=== PATIENT | female | born 1990 | race Caucasian/White ===

== ENCOUNTER → 2017-09-03 | Outpatient (CLI) | payer BC, OTHER ==
[2017-09-03 10:06] LABS: HCT 35.9 % (34.0-46.0); HGB 12.4 gm/dL (11.4-16.0); MCH 29.6 pg (25.0-35.0); MCHC 34.4 g/dL (31.0-37.0); MCV 86.2 fL (80.0-100.0); Mean Platelet Volume 7.3; Platelet Count 269 k/uL (150-450); RBC 4.17 m/uL (3.80-5.40); RDW 13.5 % (11.5-15.5)
[2017-09-03 10:13] LABS: Uric Acid 3.5 mg/dL (3.7-7.4)
[2017-09-03 14:45] LABS: Collection Time,Urine 24 hrs; Total Volume 24 Hour,Urine 2150 mls (800-1800)
[2017-09-03 15:14] LABS: Total Protein 24 Hour,Urine 258 mg/24hr (42.0-225.0)
[2017-09-03 15:15] LABS: Creatinine 24 Hour,Urine 928.8 mg/24hr (800.0-1800.0)
== END ==
LOC: LABWHC1 09:43
PROVIDERS: ATTEND Obstetrics & Gynecology Obstetrics
DX: O99.89 Other specified diseases and conditions complicating pregnancy, childbirth and the puerperium (principal); R03.0 Elevated blood-pressure reading, without diagnosis of hypertension; Z3A.00 Weeks of gestation of pregnancy not specified
CPT/HCPCS: 36415; 81050; 82575; 84156; 84450; 84460; 84550; 85027

== ENCOUNTER 2017-09-08 22:25 | Outpatient (CLI) | payer BC, OTHER ==
[2017-09-08 23:19] LABS: Appearance,Urine Clear (Clear); Bilirubin,Urine Negative (Negative); Blood,Urine Negative (Negative); Color,Urine Light Yellow; Glucose,Urine (UA) Negative (Negative); Ketones,Urine Negative (Negative); Leukocyte Esterase,Urine Negative (Negative); Nitrite,Urine Negative (Negative); PH, Urine 7.5 (5.0-8.0); Protein,Urine Negative (Negative); Specific Gravity,Urine 1.004 (1.001-1.035); Urobilinogen,Urine <2.0 mg/dL (<2.0)
[2017-09-08 23:37] VITALS: BP 136/66; PULSE 105; RESP 18; TEMP 96.6
--- NOTE | 2017-09-09 08:49 | P.MSEPDOC ---
Presenting Problems - Arrival Data Date of Arrival on Unit: 09/08/17 Time of Arrival on Unit: 22:25 Mode of Transport: Ambulatory - Complaint OB-Reason for Admission/Chief Complaint: Pain Comment: Pain in left lower abdomen that extends to side Medical History - Information : 4 Para: 3 Term: 2 : 1 Abortions: Spontaneous or Elective: 0 Number of Living Children: 3 - Gestational Age Gestational Age by TEJAS (wks/days): 27 Weeks and 4 Days Review of Systems - Review of Systems Constitutional: No problems Breast: No problems ENT: No problems Cardiovascular: No problems Respiratory: No problems Gastrointestinal: No problems Genitourinary: No problems Musculoskeletal: No problems Neurological: No problems Skin: No problems Vital Signs - Temperature Temperature: 96.6 F Temperature Source: Temporal Artery Scan - Pulse Right Brachial Pulse Rate: 105 Pulse Assessment Method: Automatic Cuff - Respirations Respiratory Rate: 18 Oxygen Delivery Method: Room Air O2 Sat by Pulse Oximetry: 98 - Blood Pressure Right Arm Blood Pressure: 136/66 Blood Pressure Mean: 89 Blood Pressure Source: Automatic Cuff Medical Screen Scoring (Pre) - Cervical Exam Dilation: Exam Deferred Effacement: Exam Deferred Membranes: Intact - Uterine Contractions Frequency: N/A Duration: N/A Intensity: N/A - Maternal Vital Signs Maternal Temperature: N/A Maternal Blood Pressure: N/A Signs of Preeclampsia: N/A Maternal Respirations: N/A - Pain Assessment Pain Location and Character: Left, Lower, Abdomen Pain Scale Used: Numeric (1 - 10) Pain Intensity: 6 Pain Description: Aching Pain Frequency: Frequent Pain Behavior: Facial Grimacing Pain Aggravating Factors: None - Maternal Trauma Maternal Trauma: N/A - Assessment Baseline FHR: 135 Heart Rate - NICHD Category: Category I (Normal) = 0 Position: N/A Station: N/A - Total Score Total Score (Pre): 0 - Level of Risk Level of Risk: Low (0-5) Physician Notification (Pre) - Physician Notified Physician Notified Date: 09/08/17 Physician Notified Time: 22:51 Physician/Practitioner Notifed:: Dr. Yoon Spoke With: Dr. Yoon New Order Received: Yes - Notification Comment Comment: Dr. Yoon called and given report on pt in triage. Pt c/o of pain in lower left abdobmen that extends to side. Orders recieved to send urinalysis. If results are WNL, ok to d/c pt to home and to instruct to increase fluids. Disposition - Disposition OB Disposition: Discharge to home Discharge Date: 09/08/17 Discharge Time: 23:27 I agree with the RN Medical Screening Exam: Yes Risk & Benefit of care provided described in d/c instruction: Yes Diagnosis: PAIN, UNSPECIFIED
== END 2017-09-08 23:27 | disposition home or self-care (01) ==
LOC: FBPOP 22:25
PROVIDERS: ATTEND Obstetrics & Gynecology Obstetrics
DX: O26.893 Other specified pregnancy related conditions, third trimester (principal); R10.32 Left lower quadrant pain; Z3A.27 27 weeks gestation of pregnancy
CPT/HCPCS: 81003; 99213

== ENCOUNTER 2017-11-12 19:15 | Outpatient (CLI) | payer BC, OTHER ==
[2017-11-12 20:15] VITALS: BP 134/76; PULSE 92; RESP 16; TEMP 97.4
--- NOTE | 2017-11-14 08:44 | P.MSEPDOC ---
Presenting Problems - Arrival Data Date of Arrival on Unit: 11/12/17 Time of Arrival on Unit: 19:15 Mode of Transport: Wheelchair - Complaint OB-Reason for Admission/Chief Complaint: Decreased Movement Comment: with occasional contractions every 20-30 mins Medical History - Information : 4 Para: 3 Term: 2 : 1 Abortions: Spontaneous or Elective: 0 Number of Living Children: 3 - Gestational Age Gestational Age by TEJAS (wks/days): 36 Weeks and 6 Days Review of Systems - Review of Systems Constitutional: No problems Breast: No problems ENT: No problems Cardiovascular: No problems Respiratory: No problems Gastrointestinal: No problems Genitourinary: No problems Musculoskeletal: No problems Neurological: No problems Skin: No problems Vital Signs - Temperature Temperature: 97.4 F Temperature Source: Temporal Artery Scan - Pulse Left Pulse Rate: 92 Pulse Assessment Method: Pulse Oximetry - Respirations Respiratory Rate: 16 Oxygen Delivery Method: Room Air O2 Sat by Pulse Oximetry: 98 - Blood Pressure Right Arm Blood Pressure: 134/76 Blood Pressure Mean: 95 Blood Pressure Source: Automatic Cuff Medical Screen Scoring (Pre) - Cervical Exam Dilation: 1-3 cm = 1 Effacement: Exam Deferred Membranes: Intact - Uterine Contractions Frequency: N/A Duration: N/A Intensity: N/A - Maternal Vital Signs Maternal Temperature: N/A Maternal Blood Pressure: N/A Signs of Preeclampsia: N/A Maternal Respirations: N/A - Pain Assessment Pain Location and Character: Abdomen Pain Scale Used: Numeric (1 - 10) Pain Intensity: 3 Pain Management Goal: 0 Pain Description: *Acute, Cramping Pain Frequency: Intermittent Pain Duration Units: Minutes Pain Behavior: Vocalization Non-Pharmacological Interventions: Distraction, Environmental Control, Position/ Reposition, Relaxation Technique - Maternal Trauma Maternal Trauma: N/A - Assessment Baseline FHR: 135 Heart Rate - NICHD Category: Category I (Normal) = 0 NST: Reactive Position: N/A Station: N/A - Total Score Total Score (Pre): 1 - Level of Risk Level of Risk: Low (0-5) Physician Notification (Pre) - Physician Notified Physician Notified Date: 11/12/17 Physician Notified Time: 19:51 Physician/Practitioner Notifed:: Dr. Montelongo Spoke With: Dr. Montelongo New Order Received: Yes (discharge home with instructions) - Notification Comment Comment: PT clear for discharge home with follow up instructions to keep next appointment on October 18. Continue to plan for schduled c-sections for October 30 and return if symptoms continue/worsen or with any additional concerns. Pt verbalizes understanding. Medical Screen Scoring (Post) - Cervical Exam Dilation: Exam Deferred Effacement: Exam Deferred Membranes: Intact - Uterine Contractions Frequency: N/A Duration: N/A Intensity: N/A - Maternal Vital Signs Maternal Temperature: N/A Maternal Blood Pressure: N/A Signs of Preeclampsia: N/A Maternal Respirations: N/A - Pain Assessment Pain Location and Character: Abdomen Pain Scale Used: Numeric (1 - 10) Pain Intensity: 3 Pain Management Goal: 0 Pain Description: *Acute, Cramping Pain Frequency: Intermittent Pain Duration Units: Minutes Pain Behavior: Vocalization Non-Pharmacological Interventions: Position/Reposition, Relaxation Technique - Maternal Trauma Maternal Trauma: N/A - Assessment Heart Rate: 135 Heart Rate - NICHD Category: Category I (Normal) = 0 NST: Reactive Position: N/A Station: N/A - Total Score Total Score (Post): 0 - Post Treatment Level of Risk Post Treatment Level of Risk: Low (0-5) Physician Notification (Post) - Physician Notified Physician Notified Date: 11/12/17 Physician Notified Time: 19:51 Physician/Practitioner Notified:: Dr. Montelongo Spoke With: Dr. Montelongo New Order Received: Yes (discharge home) Disposition - Disposition OB Disposition: Discharge to home Discharge Date: 11/12/17 Discharge Time: 19:57 I agree with the RN Medical Screening Exam: Yes Risk & Benefit of care provided described in d/c instruction: Yes Diagnosis: DECREASED MOVEMENTS, THIRD TRIMESTER, FETUS 1
== END 2017-11-12 19:57 | disposition home or self-care (01) ==
LOC: FBPOP 19:15
PROVIDERS: ATTEND Obstetrics & Gynecology Obstetrics
DX: O36.8130 Decreased fetal movements, third trimester, not applicable or unspecified (principal); Z3A.36 36 weeks gestation of pregnancy
CPT/HCPCS: 59025; 99213

== ENCOUNTER 2017-11-17 12:01 | Inpatient (IN) | payer BC, OTHER ==
[2017-11-17] MEDS ORDERED: CITRIC ACID-SODIUM CITRATE 15 ML CUP PO ONE (12:32)
[2017-11-17] MEDS: LACTATED RINGERS 1,000 ML IV SCH ×3 (12:48→16:13)
[2017-11-17 12:51] LABS: Basophils % (A) 0 %; Eosinophils # (A) 0.1 k/uL (0-0.7); Eosinophils % (A) 2 %; HCT 32.5 % (34.0-46.0); HGB 10.9 gm/dL (11.4-16.0); Lymphocytes # (A) 1.3 k/uL (1.0-4.8); Lymphocytes % (A) 17 %; MCH 26.9 pg (25.0-35.0); MCHC 33.4 g/dL (31.0-37.0); MCV 80.6 fL (80.0-100.0); Mean Platelet Volume 6.9; Monocytes # (A) 0.6 k/uL (0-1.0); Monocytes % (A) 7 %; Neutrophils # (A) 5.6 k/uL (1.3-7.7); Neutrophils % (A) 72 %; Platelet Count 244 k/uL (150-450); Poikilocytosis Slight; RBC 4.04 m/uL (3.80-5.40); RDW 15.1 % (11.5-15.5); WBC 7.8 k/uL (3.8-10.6)
[2017-11-17] MEDS ORDERED: ACETAMINOPHEN IV (For NPO) 1,000 MG in EMPTY BAG 1 BAG IVPB STA (13:16)
[2017-11-17] MEDS ORDERED: CLINDAMYCIN 900 MG in DEXTROSE 5% IN WATER 50 ML IVPB STA ×2 (13:16)
[2017-11-17] MEDS ORDERED: ePHEDrine SULFATE/0.9% NACL/PF 50 MG/5 ML SYRINGE IV ONE (14:05)
[2017-11-17] MEDS ORDERED: OXYTOCIN 10 UNIT/ML 1 ML VIAL ONE (14:05)
[2017-11-17] MEDS ORDERED: fentaNYL (PF) 50 MCG/ML 2 ML AMP ONE (14:05)
[2017-11-17] MEDS ORDERED: ONDANSETRON 4 MG/2 ML VIAL ONE (14:05)
[2017-11-17] MEDS ORDERED: MORPHINE SULFATE (PF) 0.3 MG/0.3 ML SYR ONE (14:05)
[2017-11-17] MEDS ORDERED: NALOXONE 0.4 MG/ML 1 ML VIAL IV PRN ×2 (14:36→14:54)
[2017-11-17] MEDS ORDERED: diphenhydrAMINE 50 MG/ML 1 ML VIAL IVP PRN ×3 (14:36→14:54)
[2017-11-17] MEDS ORDERED: ONDANSETRON 4 MG/2 ML VIAL IVP PRN ×2 (14:36→14:54)
[2017-11-17] MEDS ORDERED: MORPHINE SULFATE 2 MG/ML SYRINGE IVP PRN (14:36)
[2017-11-17] MEDS ORDERED: METOCLOPRAMIDE 5 MG/ML 2 ML VIAL IVP PRN (14:54)
[2017-11-17] MEDS ORDERED: diphenhydrAMINE 50 MG CAP PO PRN (14:54)
[2017-11-17] MEDS ORDERED: ACETAMINOPHEN IV (For NPO) 1,000 MG in EMPTY BAG 1 BAG IVPB ONE (14:54)
[2017-11-17] MEDS ORDERED: ZOLPIDEM 5 MG TAB PO PRN (14:54)
[2017-11-17] MEDS ORDERED: ACETAMINOPHEN TAB 325 MG TAB PO PRN (14:54)
[2017-11-17] MEDS ORDERED: diphenhydrAMINE 25 MG CAP PO PRN (14:54)
[2017-11-17] MEDS ORDERED: OXYTOCIN 20 UNITS/1000 ML NS 1,000 ML IV SCH (15:00)
--- NOTE | 2017-11-17 15:05 | P.OP ---
Date of Procedure: 11/17/17 Preoperative Diagnosis: IUP @ 378 4/7 weeks, h/o uterine rupture at 38 weeks, labor with painful ctx Postoperative Diagnosis: same + uterine window and anterior bladder adhesions Procedure(s) Performed: repeat section Anesthesia: spinal Surgeon: Lilia Montelongo Metal Bonder #1: Bryant Yoon Estimated Blood Loss (ml): 600 IV fluids (ml): 1,000 Urine output (ml): 200 Pathology: other Condition: stable Disposition: observation Indications for Procedure: regular painful ctx, q 2-5 mins Operative Findings: uterine window with anterior bladder adhesions noted. Description of Procedure: The patient was prepped and draped in the usual fashion after spinal anesthesia was administered by anesthesia. A Pfannenstiel incision was made and extended of the abdominal cavity without difficulty. The bladder peritoneum was elevated and the anterior adhesions were sharply taken down and the bladder was reflected distally. A 2 cm incision was made in the transverse plane of the lower uterine segment to enter the uterus at which time clear fluid was noted. The incision was extended in both directions bluntly. The head was encountered within the field and delivered up and through the incision where the nose and mouth were thoroughly suctioned. Remainder of the infant was delivered onto the surgical field where the cord was doubly clamped, cut, and the was passed for resuscitative measures with weight and Apgars as noted above. A segment of cord was then doubly clamped, cut, and set aside should cord gases become necessary. The placenta was delivered manually, intact , and was grossly normal with a grossly normal three-vessel cord. The uterus was exteriorized and the interior cavity of the uterus swept of any remaining placental and membranous fragments with a laparotomy sponge. The margins of the incision were grasped with allis clamps and the incision closed in 2 layers. First layer was a running locking layer of 0 vicryl from margin to margin followed by a second layer of imbricating 0 vicryl from margin to margin. Any small points of bleeding were then made hemostatic with the Bovie. Once hemostasis was achieved, the posterior cul-de-sac was suctioned with a guard and the uterine and ovarian findings are as noted above. The uterus was replaced within the abdominal cavity and the gutters swept of any remaining blood fluid or clot. The incision was again reexamined and hemostasis was noted to be excellent. Any small point of bleeding were made hemostatic with the Bovie. Once hemostasis was achieved the parietal peritoneum was loosely reapproximated. The layer of muscles were examined and made hemostatic with the Bovie. Attention was then turned to the fascia which was closed with 2 running stitches of 0 Vicryl proceeding from the lateral margins to the midpoint. The subcutaneous tissues were irrigated, made hemostatic with the Bovie. The skin was reapproximated with 4-0 vicryl. Estimated blood loss for the case was approximately 600 mL. All sponge instrument and needle counts are correct. There were no complications. The patient tolerated the procedure well and proceeded to the recovery room in stable condition. Both mother and are resting comfortably in recovery. Male born at 1429, weight of 7 lbs. 14 oz., Apgars of 9 and 10 at one and 5 minutes respectively.
--- NOTE | 2017-11-17 15:06 | P.HPOB ---
History of Present Illness H&P Date: 11/17/17 Chief Complaint: IUP @ 37 4/7 weeks, h/o uterine rupture at 38weeks, labor This is a 26 yo at 37 4/7 weeks that presents for RCS. she was awoken from sleep with painful ctx, she denies LOF/VB she notes good FM in addition. She was seen in the office today and placed on the NST machine. Contractions were noted every 5 minutes with a cervical exam of 3 cm, 80% effaced at a -3 station. on labs blood type of A+, rubella immune, hepatitis B surface antigen negative, HIV negative, RPR nonreactive, group beta strep negative. Was treated for chlamydia in May with a negative repeat culture Past Medical History History of Any Multi-Drug Resistant Organisms: None Reported Smoking Status: Never smoker Medications and Allergies Home Medications Medication Instructions Recorded Confirmed Type Pnv No.95/Ferrous Fum/Folic AC 1 tab PO DAILY 09/08/17 11/17/17 History [ Multivitamin Tablet] Allergies Allergy/AdvReac Type Severity Reaction Status Date / Time Penicillins Allergy Rash/Hives Verified 11/12/17 19:23 Exam Osteopathic Statement: *. No significant issues noted on an osteopathic structural exam other than those noted in the History and Physical/Consult. Intake and Output 11/16/17 11/17/17 11/17/17 22:59 06:59 14:59 Other: Weight 85.275 kg - OBG Physical Exam Abdomen: gravid and appropriate for GA Cervix: 3/80/-3 soft anterior Uterus: enlarged Results Result Diagrams: 11/17/17 12:30 Abnormal Lab Results - Last 24 Hours (Table) 11/17/17 Range/Units 12:30 Hgb 10.9 L (11.4-16.0) gm/dL Hct 32.5 L (34.0-46.0) % Assessment and Plan (1) Term Current Visit: Yes Status: Acute Code(s): Z34.80 - ENCOUNTER FOR SUPRVSN OF NORMAL , UNSP TRIMESTER SNOMED Code(s): 33890378 (2) H/O rupture of uterus Current Visit: Yes Status: Acute Code(s): Z87.59 - PERSONAL HISTORY OF COMP OF PREG, CHLDBRTH AND THE PUERP SNOMED Code(s): 583916574 (3) H/O section Current Visit: Yes Status: Acute Code(s): Z98.891 - HISTORY OF UTERINE SCAR FROM PREVIOUS SURGERY SNOMED Code(s): 164289722 Plan: given her continues ctx q 2-5 mins, getting more painful in nature will proceed with RCS. risks reviewed with pt including but not limited to infection bleeding damage to bladder bowel injury. will proceed
[2017-11-17 15:13] VITALS: BMI 32.2
[2017-11-17] MEDS ORDERED: IBUPROFEN IV 800 MG in SODIUM CHLORIDE 0.9% 250 ML IV ONE (16:00)
[2017-11-17] MEDS: SENNOSIDES-DOCUSATE SODIUM 1 EACH TAB PO SCH (21:00)
[2017-11-18] MEDS: IBUPROFEN 600 MG TAB PO PRN ×3 (07:21→23:32)
[2017-11-18] MEDS: SENNOSIDES-DOCUSATE SODIUM 1 EACH TAB PO SCH ×2 (07:22→20:45)
[2017-11-18 08:52] LABS: Basophils % (A) 0 %; Eosinophils # (A) 0.1 k/uL (0-0.7); Eosinophils % (A) 1 %; HCT 29.8 % (34.0-46.0); HGB 9.7 gm/dL (11.4-16.0); Hypochromasia Slight; Lymphocytes # (A) 1.1 k/uL (1.0-4.8); Lymphocytes % (A) 11 %; MCH 26.5 pg (25.0-35.0); MCHC 32.6 g/dL (31.0-37.0); MCV 81.5 fL (80.0-100.0); Mean Platelet Volume 7.2; Monocytes # (A) 0.7 k/uL (0-1.0); Monocytes % (A) 7 %; Neutrophils # (A) 7.6 k/uL (1.3-7.7); Neutrophils % (A) 78 %; Platelet Count 239 k/uL (150-450); Poikilocytosis Slight; RBC 3.66 m/uL (3.80-5.40); RDW 14.9 % (11.5-15.5); WBC 9.6 k/uL (3.8-10.6)
--- NOTE | 2017-11-18 08:56 | P.PNOBGPC ---
Subjective - Subjective Principal diagnosis: POD 1 RCS Interval history: Patient did well overnight. She is ambulating and voiding without difficulty. Her lochia is moderate, she is doing well with oral Motrin for pain. She is tolerating clear liquids without nausea or vomiting Patient reports: Reports appetite normal, Reports voiding normally, Reports pain well controlled [place]: doing well Objective - Vital Signs Latest vital signs: Vital Signs Temp Pulse Resp BP Pulse Ox 11/18/17 08:00 98.8 F 98 16 115/71 97 11/18/17 07:00 16 11/18/17 05:00 16 11/18/17 04:00 101 H 16 123/74 98 11/18/17 03:00 16 11/18/17 01:00 16 11/18/17 00:00 98.4 F 82 16 133/80 98 11/17/17 23:00 16 98 11/17/17 20:58 98.0 F 90 18 113/72 11/17/17 17:00 97.4 F L 95 18 114/57 96 11/17/17 16:30 98.4 F 89 18 113/59 96 11/17/17 16:00 98.6 F 86 18 115/56 96 11/17/17 15:45 85 116/56 98 11/17/17 15:30 97.5 F L 89 18 114/56 96 11/17/17 15:15 97.1 F L 87 18 126/60 97 11/17/17 15:00 98.2 F 106 H 18 128/55 97 11/17/17 12:32 98.9 F 106 H 18 129/75 Intake and Output 11/17/17 11/18/17 11/18/17 22:59 06:59 14:59 Output Total 1100 400 Balance -1100 -400 Output: Urine 500 400 Estimated Blood Loss 600 - Exam Extremities: Present: normal Abdomen: Present: normal appearance, soft Incision: Present: normal, dry, intact Uterus: Present: firm - Labs Labs: Abnormal Lab Results - Last 24 Hours (Table) 11/17/17 Range/Units 12:30 Hgb 10.9 L (11.4-16.0) gm/dL Hct 32.5 L (34.0-46.0) % Assessment and Plan (1) Term Current Visit: Yes Status: Acute Code(s): Z34.80 - ENCOUNTER FOR SUPRVSN OF NORMAL , UNSP TRIMESTER SNOMED Code(s): 05520953 (2) H/O rupture of uterus Current Visit: Yes Status: Acute Code(s): Z87.59 - PERSONAL HISTORY OF COMP OF PREG, CHLDBRTH AND THE PUERP SNOMED Code(s): 851188422 (3) H/O section Current Visit: Yes Status: Acute Code(s): Z98.891 - HISTORY OF UTERINE SCAR FROM PREVIOUS SURGERY SNOMED Code(s): 868272517 Plan: We will plan to advance diet as tolerated, increase ambulation today and continue routine postoperative care.
[2017-11-18] MEDS ORDERED: PRENATAL VIT-IRON-FOLIC ACID 1 EACH CAP PO SCH (09:00)
--- NOTE | 2017-11-18 12:51 | P.PN ---
Progress Note - Text Progress Note Date: 11/18/17 18-year-old female status post section postop day #1 with Duramorph spinal. Patient is doing well has no complaints, no motor deficits, no sensory deficits, no back pain, no pruritus. Patient stable and okay for discharge from anesthetic standpoint
[2017-11-18] MEDS: LACTATED RINGERS 1,000 ML IV SCH (23:43)
[2017-11-19] MEDS: LACTATED RINGERS 1,000 ML IV SCH ×3 (00:39→00:40)
[2017-11-19] MEDS: IBUPROFEN 600 MG TAB PO PRN (06:25)
[2017-11-19 08:47] VITALS: RESP 16
[2017-11-19 08:52] VITALS: BP 109/63; PULSE 73; TEMP 98.4
--- NOTE | 2017-11-19 09:58 | P.DS ---
Providers Date of admission: 11/17/17 12:01 Expected date of discharge: 11/19/17 Attending physician: Lilia Montelongo - Discharge Diagnosis(es) (1) Term Current Visit: Yes Status: Acute (2) H/O rupture of uterus Current Visit: Yes Status: Acute (3) H/O section Current Visit: Yes Status: Acute Hospital Course: This is a pleasant 26yo This is a pleasant 26yo that presented to the [facility] with c/o regular painful ct. she has a h/o c/s at 38 weeks secondary to uterine rupture. she was noted to be reji q 2-5 mins painful in nature. The decision was made to take her for RCS.. The surgery was completed without difficulty for further details on the c section please see the operative report. Her post operative course has been uneventful, she is ambulating and voiding without difficulty, she is tolerating a regular diet wihtout n/v. her lochia is minimal. Pain is controlled is motrin. Patient Condition at Discharge: Good Plan - Discharge Summary New Discharge Prescriptions: No Action Pnv No.95/Ferrous Fum/Folic AC [ Multivitamin Tablet] 1 tab PO DAILY Discharge Medication List Pnv No.95/Ferrous Fum/Folic AC [ Multivitamin Tablet] 1 tab PO DAILY 06/27 [History] Follow up Appointment(s)/Referral(s): Lilia Montelongo DO [Doctor of Osteopathic Medicine] - 2 Weeks Patient Instructions/Handouts: (DC), (GEN) Activity/Diet/Wound Care/Special Instructions: no tub baths or intercourse until 6 weeks post
== END 2017-11-19 11:30 | disposition home or self-care (01) | DRG 766 ==
LOC: 4FBP 12:01
PROVIDERS: ADMIT Obstetrics & Gynecology Obstetrics; ATTEND Obstetrics & Gynecology Obstetrics
PROC: 10D00Z1 Extraction of Products of Conception, Low, Open Approach (ICD-10-PCS; principal; 2017-11-17 02:00)
DX: O34.211 Maternal care for low transverse scar from previous cesarean delivery (principal); Z37.0 Single live birth; Z3A.37 37 weeks gestation of pregnancy; Z88.0 Allergy status to penicillin
CPT/HCPCS: 85025; 86850; 86900; 86901

== ENCOUNTER 2020-02-28 11:34 | Outpatient (CLI) | payer BC, OTHER ==
[2020-02-28 12:16] LABS: Appearance,Urine Clear (Clear); Bacteria,Urine Rare /hpf; Bilirubin,Urine Negative (Negative); Blood,Urine Negative (Negative); Color,Urine Light Yellow; Glucose,Urine (UA) Negative (Negative); Ketones,Urine 1+ (Negative); Leukocyte Esterase,Urine Trace (Negative); Mucus,Urine Rare /hpf; Nitrite,Urine Negative (Negative); PH, Urine 6.5 (5.0-8.0); Protein,Urine Negative (Negative); RBC,Urine <1 /hpf (0-5); Specific Gravity,Urine 1.006 (1.001-1.035); Squamous Epithelial Cell,Urine 1 /hpf (0-4); Urobilinogen,Urine <2.0 mg/dL (<2.0); WBC,Urine 1 /hpf (0-5)
[2020-02-28 12:46] VITALS: BP 123/55; PULSE 95; RESP 16; TEMP 96.5
--- NOTE | 2020-03-02 09:27 | P.MSEPDOC ---
Presenting Problems - Arrival Data Date of Arrival on Unit: 02/28/20 Time of Arrival on Unit: 11:34 Mode of Transport: Ambulatory - Complaint OB-Reason for Admission/Chief Complaint: Visual Disturbances Comment: seeing spots in left eye since 0800 today Medical History - Information : 5 Para: 4 - Gestational Age Gestational Age by TEJAS (wks/days): 34 Weeks and 6 Days - History Complications: Multiple , Prior Review of Systems - Review of Systems Constitutional: No problems Breast: No problems ENT: No problems Cardiovascular: No problems Respiratory: No problems Gastrointestinal: No problems Genitourinary: No problems Musculoskeletal: No problems Neurological: No problems Skin: No problems Vital Signs - Temperature Temperature: 96.5 F Temperature Source: Temporal Artery Scan - Pulse Right Sitting Brachial Pulse Rate: 95 Pulse Assessment Method: Automatic Cuff - Respirations Respiratory Rate: 16 O2 Sat by Pulse Oximetry: 99 - Blood Pressure Right Arm Blood Pressure: 123/55 Blood Pressure Mean: 77 Blood Pressure Source: Automatic Cuff Medical Screen Scoring (Pre) - Cervical Exam Dilation: Exam Deferred Effacement: Exam Deferred Membranes: Intact - Uterine Contractions Frequency: N/A Duration: N/A Intensity: N/A - Maternal Vital Signs Maternal Temperature: N/A Maternal Blood Pressure: N/A Signs of Preeclampsia: N/A - Maternal Trauma Maternal Trauma: N/A - Assessment - Baby A Baseline FHR: 125 Heart Rate - NICHD Category: Category I (Normal) = 0 NST: Reactive Position: N/A Station: N/A - Total Score - Baby A Total Score - Baby A: 0 - Total Score - Baby B Total Score - Baby B: 0 - Total Score - Baby C Total Score - Baby C: 0 - Level of Risk - Baby A Level of Risk - Baby A: Low (0-5) - Level of Risk - Baby B Level of Risk - Baby B: Low (0-5) - Level of Risk - Baby C Level of Risk - Baby C: Low (0-5) Physician Notification (Pre) - Physician Notified Physician Notified Date: 02/28/20 Physician Notified Time: 11:54 New Order Received: Yes (discharge home) Disposition - Disposition OB Disposition: Discharge to home, Written follow up instructions reviewed Discharge Date: 02/28/20 Discharge Time: 12:31 I agree with the RN Medical Screening Exam: Yes Risk & Benefit of care provided described in d/c instruction: Yes Diagnosis: FALSE LABOR BEFORE 37 COMPLETED WEEKS OF GEST, THIRD TRI
== END 2020-02-28 12:31 | disposition home or self-care (01) ==
LOC: FBPOP 11:34
PROVIDERS: ATTEND Obstetrics & Gynecology Obstetrics
DX: O26.93 Pregnancy related conditions, unspecified, third trimester (principal); Z3A.34 34 weeks gestation of pregnancy
CPT/HCPCS: 59025; 81001; 99213

== ENCOUNTER 2020-03-14 10:18 | Inpatient (IN) | payer BC, OTHER ==
[2020-03-13 10:17] VITALS: BMI 30.9
[~2020-03-14 10:18] MED LIST: CITRIC ACID-SODIUM CITRATE 15 ML CUP PO ONE
[2020-03-14] MEDS: LACTATED RINGERS 1,000 ML IV SCH ×3 (11:03→18:39)
[2020-03-14 11:17] LABS: Basophils # (A) 0.1 k/uL (0-0.2); Basophils % (A) 1 %; Eosinophils # (A) 0.1 k/uL (0-0.7); Eosinophils % (A) 2 %; HCT 32.8 % (34.0-46.0); HGB 10.6 gm/dL (11.4-16.0); Hypochromasia Slight; Lymphocytes # (A) 1.6 k/uL (1.0-4.8); Lymphocytes % (A) 18 %; MCH 27.5 pg (25.0-35.0); MCHC 32.3 g/dL (31.0-37.0); MCV 85.1 fL (80.0-100.0); Mean Platelet Volume 7.2; Monocytes # (A) 0.6 k/uL (0-1.0); Monocytes % (A) 8 %; Neutrophils % (A) 70 %; Platelet Count 267 k/uL (150-450); Poikilocytosis Slight; RBC 3.85 m/uL (3.80-5.40); RDW 14.1 % (11.5-15.5); WBC 8.5 k/uL (3.8-10.6)
[2020-03-14 11:24] LABS: Glucose,Whole Blood 73 mg/dL (75-99)
[2020-03-14] MEDS ORDERED: ZOLPIDEM 5 MG TAB PO PRN (13:08)
[2020-03-14] MEDS ORDERED: METOCLOPRAMIDE 5 MG/ML 2 ML VIAL IVP PRN (13:08)
[2020-03-14] MEDS ORDERED: ACETAMINOPHEN TAB 325 MG TAB PO PRN (13:08)
[2020-03-14] MEDS ORDERED: NALOXONE 0.4 MG/ML 1 ML VIAL IV PRN (13:08)
[2020-03-14] MEDS ORDERED: diphenhydrAMINE 50 MG/ML 1 ML VIAL IVP PRN ×2 (13:08)
[2020-03-14] MEDS ORDERED: HYDROcodone/APAP 5-325MG 1 EACH TAB PO PRN (13:08)
[2020-03-14] MEDS ORDERED: diphenhydrAMINE 50 MG CAP PO PRN (13:08)
[2020-03-14] MEDS ORDERED: ONDANSETRON 4 MG/2 ML VIAL IVP PRN (13:08)
[2020-03-14] MEDS ORDERED: diphenhydrAMINE 25 MG CAP PO PRN (13:08)
[2020-03-14] MEDS ORDERED: SIMETHICONE 80 MG CHEWABLE PO PRN (13:08)
[2020-03-14] MEDS ORDERED: OXYTOCIN 20 UNITS/1000 ML NS 1,000 ML IV SCH (13:15)
[2020-03-14] MEDS ORDERED: IBUPROFEN IV 800 MG in SODIUM CHLORIDE 0.9% 250 ML IV ONE (13:22)
[2020-03-14] MEDS ORDERED: ACETAMINOPHEN IV (For NPO) 1,000 MG in EMPTY BAG 1 BAG IVPB ONE (13:30)
[2020-03-14] MEDS ORDERED: OXYTOCIN 10 UNIT/ML 1 ML VIAL ONE (13:40)
[2020-03-14] MEDS ORDERED: diphenhydrAMINE 50 MG/ML 1 ML VIAL ONE (13:40)
[2020-03-14] MEDS ORDERED: MORPHINE SULFATE (PF) 0.3 MG/0.3 ML SYR ONE (13:40)
[2020-03-14] MEDS ORDERED: PHENYLEPHRINE-0.9% NACL SYG 1 MG/10 ML SYRINGE ONE (13:40)
[2020-03-14] MEDS ORDERED: NALBUPHINE 10 MG/ML (1 ML AMP) ONE (13:40)
[2020-03-14] MEDS ORDERED: ONDANSETRON 4 MG/2 ML VIAL ONE (13:40)
--- NOTE | 2020-03-14 14:38 | P.OP ---
Date of Procedure: 03/14/20 Preoperative Diagnosis: IUP at 37-0/7 weeks, history of 3, previous uterine window, family status complete Postoperative Diagnosis: Same Procedure(s) Performed: Repeat section with tubal ligation Anesthesia: spinal Surgeon: Lilia Montelongo Christmas Tree Grader #1: Bryant Yoon Estimated Blood Loss (ml): 500 IV fluids (ml): 900 Urine output (ml): 150 Pathology: none sent Condition: stable Disposition: observation Indications for Procedure: This 29-year-old 6 para 3114 presents to labor and delivery for scheduled repeat section at 37-0/7 weeks. Patient has been scheduled at 37 weeks secondary to uterine window noted at prior , patient was advised to not get after her last secondary to the uterine window, patient had a spontaneous 2 years after. Patient desires permanent sterilization. Operative Findings: Lower uterine segment uterine window, anterior placenta, normal ovaries bilaterally, Filshie clips placed on bilateral fallopian tubes. Normal ovaries are appreciated bilaterally. Viable female infant delivered at 1405, weight of 6 lbs. 11 oz. and Apgars of 8 and 9 at one and 5 minutes respectively. Description of Procedure: Patient was taken back to the operating suite where spinal anesthesia was found be adequate. She was then prepped and draped in normal sterile fashion in the dorsal supine position. A Pfannenstiel skin incision was made with the scalpel and carried through to the underlying layer of fascia. The fascia was then incised in the midline and extended laterally. The superior aspect of the fascial incision was then grasped with [place] clamps, elevated and underlying rectus muscles dissected off sharply. Attention was then turned to the inferior aspect of the fascial incision which was grasped gladys clamps, elevated and underlying rectus muscles dissected off sharply once again. The peritoneum was then identified and entered. The incision was then extended superiorly and inferiorly with good visualization the bladder. Bladder blade was then inserted and the vesicouterine peritoneum was identified and a bladder flap was created. A thin lower uterine segment, uterine window was noted once again. Hysterotomy incision was made well above this window. Amniotomy was performed clear fluid was obtained was delivered in a vertex presentation umbilical cord was doubly clamped and cut and infant was handed off to awaiting RN. A body cord was noted and delivered through. The placenta was then delivered manually and the uterus was cleared of all clots and debris. The uterus was then delivered from the abdomen and the uterine incision was closed with 0 Vicryl in a running locked fashion. Some bleeding was noted on the right-hand side of the uterine incision therefore a [id number] suture was used to obtain hemostasis. The pelvis was then copiously irrigated and returned to the abdomen. Gutters were cleared of all clots and debris. Hysterotomy incision was inspected and found to be hemostatic. The peritoneum was then loosely reapproximated. The fascial incision was then closed with 0 Vicryl in a running fashion from one lateral edge the other. Subcutaneous tissue was then irrigated and found to be hemostatic. The subcu tissues closed with 3-0 Vicryl in a running fashion. Skin was then closed with 4-0 Vicryl in a subarticular fashion. All counts are noted to be correct 2 and the procedure. Patient and infant tolerated delivery well and are resting comfortably.
--- NOTE | 2020-03-14 14:39 | P.HPOB ---
History of Present Illness H&P Date: 03/14/20 Chief Complaint: IUP at 37-0/7 weeks, history of uterine window with last C- section this is a 29-year-old 6 para 3114 at 37-0/7 weeks that presents to labor and delivery for repeat section with tubal ligation. Patient's prior was complicated by a very thin lower uterine segment, uterine window. Patient was advised of the time not to get again although she did. Patient has had an essentially uncomplicated . Patient did rec eive betamethasone 2 at 35 weeks.. Patient notes good movement she denies contractions or vaginal bleeding, loss of fluid. Patient does desire permanent sterilization with tubal ligation. On bloodwork patient has a blood type of A+, rubella immune, B surface negative, GBS negative, HIV negative, RPR nonreactive. Review of Systems Constitutional: Denies chills, Denies fatigue, Denies fever Ears, nose, mouth and throat: Denies headache Cardiovascular: Reports leg edema Respiratory: Denies dyspnea Gastrointestinal: Denies constipation, Denies diarrhea Genitourinary: Reports Past Medical History Past Medical History: No Reported History History of Any Multi-Drug Resistant Organisms: None Reported Past Surgical History: Appendectomy, Section Additional Past Surgical History / Comment(s): cs x2, appe in 2013 Past Anesthesia/Blood Transfusion Reactions: No Reported Reaction Past Psychological History: Depression Additional Psychological History / Comment(s): NOT ON ANY RX AT THIS TIME Smoking Status: Never smoker Past Alcohol Use History: None Reported Additional Past Alcohol Use History / Comment(s): QUIT SMOKING 2014 Past Drug Use History: None Reported - Past Family History Mother Family Medical History: No Reported History Medications and Allergies Home Medications Medication Instructions Recorded Confirmed Type Pnv No.95/Ferrous Fum/Folic AC 1 tab PO DAILY 09/08/17 03/14/20 History [ Multivitamin Tablet] Allergies Allergy/AdvReac Type Severity Reaction Status Date / Time Penicillins Allergy Rash/Hives Verified 03/14/20 10:44 Exam Osteopathic Statement: *. No significant issues noted on an osteopathic structural exam other than those noted in the History and Physical/Consult. Vital Signs Temp Pulse Resp BP Pulse Ox 03/14/20 10:44 97.4 F L 110 H 16 117/61 97 Intake and Output 03/13/20 03/14/20 03/14/20 22:59 06:59 14:59 Other: Weight 81.647 kg targeted physical exam is performed in this date and oxyacetylene cutter a well-nourished well-developed female in no acute distress, breathing is noted to be nonlabored, heart has a regular rate and rhythm, abdomen is gravid and appropriate for gestational age. heart tones returned be category 1. Cervical exam is deferred. Results Result Diagrams: 03/14/20 10:50 Abnormal Lab Results - Last 24 Hours (Table) 03/14/20 03/14/20 Range/Units 10:50 11:23 Hgb 10.6 L (11.4-16.0) gm/dL Hct 32.8 L (34.0-46.0) % POC Glucose (mg/dL) 73 L (75-99) mg/dL Assessment and Plan (1) 37 weeks gestation of Current Visit: Yes Status: Acute Code(s): Z3A.37 - 37 WEEKS GESTATION OF SNOMED Code(s): 10045804 (2) H/O section Current Visit: No Status: Acute Code(s): Z98.891 - HISTORY OF UTERINE SCAR FROM PREVIOUS SURGERY SNOMED Code(s): 323914436 (3) H/O rupture of uterus Current Visit: No Status: Acute Code(s): Z87.59 - PERSONAL HISTORY OF COMP OF PREG, CHLDBRTH AND THE PUERP SNOMED Code(s): 440098498 Plan: patient is admitted to labor and delivery with planned repeat and tubal ligation. Patient is counseled on risks of surgery including but not limited to infection, bleeding, damage to bladder/bowel/ patient states understanding and wishes to proceed. Patient desires tubal ligation secondary to prior history of lower uterine segment thinning, uterine window. Patient states understanding of failure rates of 2-3 per thousand could fail. We'll proceed to OR.
[2020-03-14] MEDS: SENNOSIDES-DOCUSATE SODIUM 1 EACH TAB PO SCH (19:54)
[2020-03-15 06:55] LABS: Basophils % (A) 0 %; Eosinophils # (A) 0.1 k/uL (0-0.7); Eosinophils % (A) 2 %; HCT 31.2 % (34.0-46.0); HGB 10.2 gm/dL (11.4-16.0); Hypochromasia Slight; Lymphocytes # (A) 1.4 k/uL (1.0-4.8); Lymphocytes % (A) 17 %; MCH 27.8 pg (25.0-35.0); MCHC 32.7 g/dL (31.0-37.0); MCV 85.1 fL (80.0-100.0); Mean Platelet Volume 7.1; Monocytes # (A) 0.6 k/uL (0-1.0); Monocytes % (A) 7 %; Neutrophils # (A) 6.1 k/uL (1.3-7.7); Neutrophils % (A) 73 %; Platelet Count 231 k/uL (150-450); Poikilocytosis Slight; RBC 3.67 m/uL (3.80-5.40); RDW 14.1 % (11.5-15.5); WBC 8.3 k/uL (3.8-10.6)
--- NOTE | 2020-03-15 07:04 | P.PN ---
Progress Note - Text Date: 03/15/2020 Time: 06:47 The patient is status post section Vital signs stable VAS: 0-1-10 Patient has no complaints of pain. The patient incurred some minimal itching yesterday, this itching is now subsiding. Pain meds to be managed by service.
[2020-03-15] MEDS: SENNOSIDES-DOCUSATE SODIUM 1 EACH TAB PO SCH (07:51)
[2020-03-15] MEDS ORDERED: PRENATAL VIT-IRON-FOLIC ACID 1 EACH CAP PO SCH (09:00)
--- NOTE | 2020-03-15 09:49 | P.PNOBGPC ---
Subjective - Subjective Principal diagnosis: POD 1 RCS with TL Interval history: Patient is doing well postoperatively. She is ambulating and voiding without difficulty. She states her pain is well-controlled. Lochia is minimal baby is pressing well. Patient reports: Reports appetite normal, Reports voiding normally, Reports pain well controlled, Reports ambulating normally [place]: doing well, nursing well Objective - Vital Signs Latest vital signs: Vital Signs Temp Pulse Resp BP Pulse Ox 03/15/20 08:00 98.1 F 74 18 107/68 03/15/20 04:18 98.5 F 88 18 113/58 94 L 03/14/20 23:58 98 F 79 16 118/59 95 03/14/20 20:00 98.7 F 85 16 107/60 96 03/14/20 16:30 97.5 F L 74 16 114/56 99 03/14/20 16:02 75 16 117/63 97 03/14/20 15:33 71 16 111/58 98 03/14/20 15:18 85 16 112/58 97 03/14/20 15:03 77 16 119/61 96 03/14/20 14:48 82 16 107/58 97 03/14/20 14:33 96.9 F L 85 16 115/59 96 03/14/20 10:44 97.4 F L 110 H 16 117/61 97 Intake and Output 03/14/20 03/15/20 03/15/20 22:59 06:59 14:59 Intake Total 100 Output Total 2400 850 Balance -2400 -750 Intake: Oral 100 Output: Urine 2400 850 Uretheral (Lowe) 300 Other: Voiding Method Indwelling Catheter # Voids 1 - Exam Extremities: Present: normal, edema Abdomen: Present: normal appearance Incision: Present: normal, dry, intact Uterus: Present: normal, firm - Labs Labs: Abnormal Lab Results - Last 24 Hours (Table) 03/14/20 03/14/20 03/15/20 Range/Units 10:50 11:23 06:26 RBC 3.67 L (3.80-5.40) m/uL Hgb 10.6 L 10.2 L (11.4-16.0) gm/dL Hct 32.8 L 31.2 L (34.0-46.0) % POC Glucose (mg/dL) 73 L (75-99) mg/dL Assessment and Plan (1) 37 weeks gestation of Current Visit: Yes Status: Acute Code(s): Z3A.37 - 37 WEEKS GESTATION OF SNOMED Code(s): 47741574 (2) H/O section Current Visit: No Status: Acute Code(s): Z98.891 - HISTORY OF UTERINE SCAR FROM PREVIOUS SURGERY SNOMED Code(s): 502191781 (3) H/O rupture of uterus Current Visit: No Status: Acute Code(s): Z87.59 - PERSONAL HISTORY OF COMP OF PREG, CHLDBRTH AND THE PUERP SNOMED Code(s): 183701878 (4) S/P section Current Visit: Yes Status: Acute Code(s): Z98.891 - HISTORY OF UTERINE SCAR FROM PREVIOUS SURGERY SNOMED Code(s): 041385379 Plan: Patient is doing well postoperatively. We will encourage increased ambulation and advance diet as tolerated. Continue routine postoperative care and anticipate discharge home tomorrow.
[2020-03-15] MEDS: IBUPROFEN 600 MG TAB PO PRN ×2 (13:01→20:28)
[2020-03-15] MEDS: LACTATED RINGERS 1,000 ML IV SCH ×2 (21:25→21:28)
[2020-03-16] MEDS: SENNOSIDES-DOCUSATE SODIUM 1 EACH TAB PO SCH ×2 (01:58→08:11)
[2020-03-16] MEDS: IBUPROFEN 600 MG TAB PO PRN ×2 (02:08→07:29)
[2020-03-16 07:55] VITALS: BP 116/75; PULSE 81; RESP 16; TEMP 97.2
--- NOTE | 2020-03-16 09:36 | P.DS ---
Providers Date of admission: 03/14/20 10:18 Expected date of discharge: 03/16/20 Attending physician: Lilia Montelongo Primary care physician: Stated None - Discharge Diagnosis(es) (1) 37 weeks gestation of Current Visit: Yes Status: Acute (2) H/O section Current Visit: No Status: Acute (3) H/O rupture of uterus Current Visit: No Status: Acute (4) S/P section Current Visit: Yes Status: Acute Hospital Course: This is a 29-year-old 6 para 3114 that presented to labor and delivery for scheduled repeat section 37-0/7 weeks. Patient had a prior C- section 2 years ago with noted uterine window and was advised at that time to not. Other . Patient did become and has had a relatively unc omplicated . Patient did receive betamethasone prior to delivery as we are delivering at 37 weeks. Patient underwent repeat section with tubal ligation without difficulty. Lower uterine segment was once again noted to be very thin in nature. For further details on the please see the operative report. Patient's postoperative course has been uneventful. On this postoperative day #2 she is ambulating and voiding without difficulty. She is tolerating a regular diet without nausea or vomiting. She states her lochia is minimal. She would like discharge home. She is breast-feeding without difficulty. Patient Condition at Discharge: Good Plan - Discharge Summary Discharge Rx Participant: Yes New Discharge Prescriptions: No Action Pnv No.95/Ferrous Fum/Folic AC [ Multivitamin Tablet] 1 tab PO DAILY Discharge Medication List Pnv No.95/Ferrous Fum/Folic AC [ Multivitamin Tablet] 1 tab PO DAILY 09/08/17 [History] Follow up Appointment(s)/Referral(s): Lilia Montelongo DO [Doctor of Osteopathic Medicine] - 2 Weeks Patient Instructions/Handouts: (DC), (GEN) Discharge Disposition: HOME SELF-CARE
== END 2020-03-16 10:15 | disposition home or self-care (01) | DRG 785 ==
LOC: 4FBP 10:18
PROVIDERS: ADMIT Obstetrics & Gynecology Obstetrics; ATTEND Obstetrics & Gynecology Obstetrics
PROC: 0UL70CZ Occlusion of Bilateral Fallopian Tubes with Extraluminal Device, Open Approach (ICD-10-PCS; principal; 2020-03-14 13:40)
PROC: 10D00Z1 Extraction of Products of Conception, Low, Open Approach (ICD-10-PCS; principal; 2020-03-14 13:40)
DX: O34.211 Maternal care for low transverse scar from previous cesarean delivery (principal); O24.420 Gestational diabetes mellitus in childbirth, diet controlled; O99.344 Other mental disorders complicating childbirth; F32.9 Major depressive disorder, single episode, unspecified; L29.9 Pruritus, unspecified; O99.72 Diseases of the skin and subcutaneous tissue complicating childbirth; Z37.0 Single live birth; Z3A.37 37 weeks gestation of pregnancy; Z30.2 Encounter for sterilization; Z87.42 Personal history of other diseases of the female genital tract; Z87.19 Personal history of other diseases of the digestive system; Z90.49 Acquired absence of other specified parts of digestive tract; Z88.0 Allergy status to penicillin
CPT/HCPCS: 85025; 86850; 86900; 86901